=== PATIENT | male | born 1965 | race Hispanic/Latino ===

== ENCOUNTER 2019-01-11 02:26 | Emergency (ER) | payer SELFPAY | END 2019-01-11 02:55 | disposition home or self-care (01) | LOC: ERS 02:26 | DX: L03.115 Cellulitis of right lower limb (principal); K04.7 Periapical abscess without sinus; I25.10 Atherosclerotic heart disease of native coronary artery without angina pectoris; F32.9 Major depressive disorder, single episode, unspecified; Z79.899 Other long term (current) drug therapy | CPT/HCPCS: 99283 ==

== ENCOUNTER 2019-03-25 23:27 | Emergency (ER) | payer SELFPAY ==
[2019-03-26] MEDS ORDERED: Clindamycin 150 MG CAP ONE ×3 (07:52→21:55)
== END 2019-03-27 22:19 ==
LOC: ERS 23:27
DX: F32.9 Major depressive disorder, single episode, unspecified (principal); L03.115 Cellulitis of right lower limb; I25.10 Atherosclerotic heart disease of native coronary artery without angina pectoris
CPT/HCPCS: 99284

== ENCOUNTER 2020-07-23 06:52 | Emergency (ER) | payer MEDICARE ==
--- NOTE | 2020-07-23 07:41 | RAD ---
Right foot 3 views HISTORY: Pain. Swelling. FINDINGS: Lisfranc joint alignment is anatomic. Widespread mild joint space narrowing and osteophytos is. Toes are in persistent extension, somewhat limiting evaluation. No acute fracture, dislocation, or ag gressive osseous erosions. 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 Soft tissue swelling evident about the forefoot. IMPRESSION : Scattered mild osteoarthritic changes. No acute osseous abnormalities demonstrated. Soft tissue swelling about the forefoot without radiographic evidence of complication.
[2020-07-23 08:06] LABS: ALT (SGPT) 22 U/L (8-55); AST (SGOT) 39 U/L (5-34); Albumin 2.4 g/dL (3.5-5.0); Alkaline Phosphatase 122 U/L (40-110); Anion Gap 10 mmol/L (10-20); BUN (Urea Nitrogen) 10 mg/dL (8.4-25.7); Bilirubin, Total 1.1 mg/dL (0.2-1.2); Calc. Creatinine Clearance 0 mL/min (70-130); Calcium 7.5 mg/dL (7.8-10.44); Carbon Dioxide 19 mmol/L (22-29); Chloride 107 mmol/L (98-107); Estimated GFR-MDRD Greater than 90; Globulin 3.8 g/dL (2.4-3.5); Glucose 105 mg/dL (70-105); Potassium 3.8 mmol/L (3.5-5.1); Protein, Total 6.2 g/dL (6.0-8.3); Sodium 132 mmol/L (136-145)
--- NOTE | 2020-07-23 08:12 | ULT ---
EXAM: Right lower extremity venous Doppler HISTORY: Right lower extremity pain and swelling as well as redness. Open wound right lower extremity. FINDINGS: Grayscale, color-flow, Doppler evaluation, spectral analysis of the right lower extremity venous stru ctures is performed with 2-D imaging. The right common femoral, superficial femoral, popliteal, posterior tibial, proximal greater saphenous and profunda femoral veins are imaged. There is normal luminal compressibility, flow, and augmentation in the visualized deep venous structu res of the right lower extremity. There is increased pulsatility of the venous waveforms which is nonspecific. This can be seen with cardiac decompensation. Enlarged lymph nodes are seen in the right inguinal region largest measuring 3.9 cm x 1.6 cm which ar e likely reactive in origin. IMPRESSION: 1. No evidence of a deep vein thrombosis in the visualized deep venous structures right lower extremi ty. 2. Right inguinal lymphadenopathy which is likely reactive in origin.
[2020-07-23 08:17] LABS: #Eosinphils 1.1 thou/uL (0.0-0.7); #Lymphocytes 1.5 thou/uL (1.20-3.40); #Monocytes 0.9 thou/uL (0.11-0.59); #Neutrophils 4.1 thou/uL (1.40-6.50); %Basophils 0.4 % (0.0-1.0); %Eosinophils 14.1 % (0.0-10.0); %Lymphocytes 20.1 % (21.0-51.0); %Monocytes 11.1 % (0.0-10.0); %Neutrophils 54.3 % (42.0-75.0); Hemoglobin 11.8 g/dL (14.0-18.0); Mean Corpuscular HGB CONC 33.6 g/dL (32.0-36.0); Mean Corpuscular Hemoglobin 33.2 pg (27.0-31.0); Mean Corpuscular Volume 98.8 fL (78.0-98.0); Platelet Count 168 thou/uL (130-400); RBC Distribution Width 12.3 % (11.5-14.5); Red Blood Cell (RBC) Count 3.54 mill/uL (4.70-6.10); White Blood Cell (WBC) Count 7.6 thou/uL (4.8-10.8)
== END 2020-07-23 09:22 | disposition home or self-care (01) ==
LOC: ERS 06:52
DX: R60.0 Localized edema (principal); L97.419 Non-pressure chronic ulcer of right heel and midfoot with unspecified severity; F32.9 Major depressive disorder, single episode, unspecified; I25.10 Atherosclerotic heart disease of native coronary artery without angina pectoris; Z79.899 Other long term (current) drug therapy
CPT/HCPCS: 36415; 80053; 82140; 85025

== ENCOUNTER 2023-08-24 00:02 | Inpatient (IN) | payer MEDICARE ==
[2023-08-24] MEDS ORDERED: Morphine 2 MG/ML VIAL ONE ×2 (00:57→02:12)
[2023-08-24 02:51] LABS: #Monocytes 0.5 thou/uL (0.11-0.59); #Neutrophils 7.1 thou/uL (1.40-6.50); %Basophils 0.5 % (0.0-1.0); %Eosinophils 0.2 % (0.0-10.0); %Lymphocytes 10.7 % (21.0-51.0); %Monocytes 5.9 % (0.0-10.0); %Neutrophils 81.8 % (42.0-75.0); Hematocrit 30.3 % (42.0-52.0); Hemoglobin 10.3 g/dL (14.0-18.0); Mean Corpuscular Hemoglobin 33.2 pg (27.0-31.0); Mean Corpuscular Volume 97.7 fl (78.0-98.0); Mean Platelet Volume 8.9 fL (7.4-10.4); Platelet Count 125 10x3/uL (130-400); RBC Distribution Width 13.8 % (11.5-14.5); White Blood Cell (WBC) Count 8.6 10x3/uL (4.8-10.8)
[2023-08-24] MEDS ORDERED: Ondansetron PF 4 MG/2 ML Vial IVP PRN (03:06)
[2023-08-24] MEDS ORDERED: Acetaminophen 325 MG TAB PO PRN (03:06)
[2023-08-24 03:13] LABS: ALT (SGPT) 22 U/L (8-55); AST (SGOT) 54 U/L (5-34); Albumin 1.6 g/dL (3.5-5.0); Alkaline Phosphatase 138 U/L (40-110); Anion Gap 12 mmol/L (10-20); BUN (Urea Nitrogen) 12 mg/dL (8.4-25.7); Bilirubin, Total 1.4 mg/dL (0.2-1.2); Calc. Creatinine Clearance 0 mL/min (70-130); Carbon Dioxide 17 mmol/L (22-29); Chloride 113 mmol/L (98-107); Estimated GFR 111; Globulin 5.3 g/dL (2.4-3.5); Glucose 97 mg/dL (70-105); Potassium 3.5 mmol/L (3.5-5.1); Protein, Total 6.9 g/dL (6.0-8.3); Sodium 138 mmol/L (136-145)
[2023-08-24 03:19] LABS: #Monocytes 0.5 thou/uL (0.11-0.59); #Neutrophils 6.9 thou/uL (1.40-6.50); %Basophils 0.5 % (0.0-1.0); %Eosinophils 0.4 % (0.0-10.0); %Lymphocytes 11.1 % (21.0-51.0); %Monocytes 6.1 % (0.0-10.0); %Neutrophils 81.2 % (42.0-75.0); Hematocrit 30.2 % (42.0-52.0); Hemoglobin 10.2 g/dL (14.0-18.0); Mean Corpuscular HGB CONC 33.8 g/dL (32.0-36.0); Mean Corpuscular Hemoglobin 33.3 pg (27.0-31.0); Mean Corpuscular Volume 98.7 fl (78.0-98.0); Mean Platelet Volume 8.8 fL (7.4-10.4); Platelet Count 124 10x3/uL (130-400); RBC Distribution Width 13.8 % (11.5-14.5); Red Blood Cell (RBC) Count 3.06 mill/uL (4.70-6.10); White Blood Cell (WBC) Count 8.5 10x3/uL (4.8-10.8)
[2023-08-24] MEDS ORDERED: Piperacillin/Tazobactam 3.375 GM in Sodium Chloride 0.9% 100 ML IVPB SCH ×4 (04:00→10:00)
[2023-08-24] MEDS ORDERED: Sodium Bicarb 50 MEQ/50 ML Abboject 8.4% SYRINGE IVP SCH (04:30)
[2023-08-24 05:28] LABS: Bacteria/HPF None Seen HPF (None Seen); Bilirubin Negative (Negative); Blood, Urine Negative (Negative); CAUTI Indications for Culture Fever or rigors; Clarity Clear (Clear); Glucose, Urine (Dipstick) Normal (Negative); Ketone, Urine Negative (Negative); Leukocyte Negative Leu/uL (Negative); Nitrite Negative (Negative); Protein, Urine (Dipstick) 10 mg/dL (Neg-Trace); Specific Gravity, Urine 1.027 (1.002-1.036); Squamous Epithelial 0-3 HPF (0-3); Urobilinogen Normal mg/dL (Less than 2); WBC/HPF 0-3 HPF (0-3); pH, Urine 6.5 (5.0-9.0)
[2023-08-24 05:32] LABS: Urine Culture Reflex No No
[2023-08-24 05:35] LABS: Amphetamine Detected (NotDetected); Barbiturates Screen Not Detected (NotDetected); Benzodiazepine Screen Not Detected (NotDetected); Cocaine Metabolite Screen Not Detected (NotDetected); Methadone Not Detected (NotDetected); Methamphetamine Detected (NotDetected); Opiate Screen Detected (NotDetected); Oxycodone Screen Not Detected (NotDetected); Phencyclidine (PCP) Not Detected (NotDetected); THC/Cannabinoid Screen Not Detected (NotDetected); Tricyclic Screen Not Detected (NotDetected)
[2023-08-24 05:50] VITALS: BMI 26.4
[2023-08-24] MEDS ORDERED: Vancomycin (BATCH) 1.75 GM in Premix 1 BAG IVPB SCH (06:00)
[2023-08-24 13:03] LABS: INR-International Normal Ratio 1.6; Prothrombin Time 19.6 sec (12.0-14.7)
[2023-08-24] MEDS ORDERED: Vancomycin (BATCH) 1.25 GM in Premix 1 BAG IVPB SCH (14:00)
[2023-08-24] MEDS ORDERED: Heparin 5,000 UNITS/ML VIAL SC SCH (21:00)
[2023-08-24] MEDS: Amoxicillin/Potassium Clav 875 MG TAB PO SCH (21:42)
[2023-08-25 04:23] LABS: #Basophils 0.1 thou/uL (0.0-0.2); #Eosinphils 1.1 thou/uL (0.0-0.7); #Monocytes 0.3 thou/uL (0.11-0.59); #Neutrophils 2.1 thou/uL (1.40-6.50); %Basophils 1.1 % (0.0-1.0); %Lymphocytes 23.8 % (21.0-51.0); %Monocytes 6.5 % (0.0-10.0); %Neutrophils 44.4 % (42.0-75.0); Hematocrit 30.3 % (42.0-52.0); Hemoglobin 10.3 g/dL (14.0-18.0); Mean Corpuscular Hemoglobin 33.1 pg (27.0-31.0); Mean Corpuscular Volume 97.4 fl (78.0-98.0); Mean Platelet Volume 8.9 fL (7.4-10.4); Platelet Count 141 10x3/uL (130-400); Red Blood Cell (RBC) Count 3.11 mill/uL (4.70-6.10); White Blood Cell (WBC) Count 4.6 10x3/uL (4.8-10.8)
[2023-08-25 04:40] LABS: Anion Gap 7 mmol/L (10-20); BUN (Urea Nitrogen) 12 mg/dL (8.4-25.7); Calc. Creatinine Clearance 170 mL/min (70-130); Calcium 7.3 mg/dL (7.8-10.44); Carbon Dioxide 22 mmol/L (22-29); Chloride 109 mmol/L (98-107); Estimated GFR 111; Glucose 98 mg/dL (70-105); Potassium 3.4 mmol/L (3.5-5.1); Sodium 135 mmol/L (136-145)
[2023-08-25 04:45] LABS: ALT (SGPT) 20 U/L (8-55); AST (SGOT) 51 U/L (5-34); Albumin 1.5 g/dL (3.5-5.0); Alkaline Phosphatase 117 U/L (40-110); Bilirubin, Direct 0.6 mg/dL (0.1-0.3); Bilirubin, Total 0.9 mg/dL (0.2-1.2); Protein, Total 6.6 g/dL (6.0-8.3)
[2023-08-25] MEDS: Amoxicillin/Potassium Clav 875 MG TAB PO SCH (09:09)
[2023-08-25 12:06] VITALS: TEMP 97.8
[2023-08-25 12:49] VITALS: BP 126/73
== END 2023-08-25 16:34 | disposition home health service (06) | DRG 872 ==
LOC: ERS 00:02 → 2NO 02:31
PROVIDERS: ADMIT Internal Medicine; ATTEND Hospitalist
DX: A41.9 Sepsis, unspecified organism (principal); L03.116 Cellulitis of left lower limb; L03.115 Cellulitis of right lower limb; E87.20 Acidosis, unspecified; D64.9 Anemia, unspecified; I25.10 Atherosclerotic heart disease of native coronary artery without angina pectoris; F15.10 Other stimulant abuse, uncomplicated; I87.8 Other specified disorders of veins; M17.0 Bilateral primary osteoarthritis of knee; S81.801A Unspecified open wound, right lower leg, initial encounter; S81.802A Unspecified open wound, left lower leg, initial encounter; K74.60 Unspecified cirrhosis of liver; B19.20 Unspecified viral hepatitis C without hepatic coma; Z95.5 Presence of coronary angioplasty implant and graft; Z98.890 Other specified postprocedural states; X58.XXXA Exposure to other specified factors, initial encounter
CPT/HCPCS: 36415; 76705; 80048; 80053; 80076; 80306; 81001; 82140; 83605; 83880; 85025; 85610; 96374; 96376; 97139; J2272; J2543; J3370; J3490

== ENCOUNTER 2024-10-13 18:03 | Inpatient (IN) | payer MEDICARE ==
[2024-10-13] MEDS ORDERED: KETAMINE 100 MG/ML (5ML VIAL) ONE (18:08)
[2024-10-13] MEDS ORDERED: Rocuronium Bromide 10 MG/ML (10ML VIAL) ONE (18:13)
[2024-10-13 18:33] LABS: Actual Bicarbonate (HCO3a) 17.4 mEq/L (22-28); Analyzer IN Cardio ER; Base Excess (BEa) -6.3 mEq/L (-2.0 to +3.0); CO2 Tension 29.8 mmHg (35.0-45.0); Calcium, Ionized (arterial) 1.19 mmol/L (1.12-1.30); Carboxyhemoglobin (COHb) 0.4 gm% (0.0-3.0); Hematocrit-ABG 41 % (42.0-52.0); Hemoglobin (Hb) 13.8 g/dL (14.0-18.0); O2 Tension (PaO2), arterial 218.5 mmHg (80.0-100.0); Potassium - ABG Lab 3.62 mmol/L (3.70-5.30); pH, Arterial 7.385 (7.35-7.45)
[2024-10-13 18:44] LABS: Puncture Site Left Brachial artery
[2024-10-13] MEDS ORDERED: Acetaminophen 650 MG Suppository ONE (18:56)
[2024-10-13] MEDS ORDERED: Sodium Chloride 0.9% 100 ML ONE (18:57)
[2024-10-13] MEDS ORDERED: metroNIDAZOLE 500 MG (100 mL) BAG ONE (18:57)
[2024-10-13] MEDS ORDERED: cefTRIAXone (ROCEPHIN) 2 GM VIAL ONE (18:57)
[2024-10-13 19:07] LABS: Bilirubin Negative (Negative); Blood, Urine 3+ (Negative); CAUTI Indications for Culture Alt mental st,lethar; Clarity Turbid (Clear); Glucose, Urine (Dipstick) Normal (Negative); Ketone, Urine Trace mg/dL (Negative); Leukocyte Negative Leu/uL (Negative); Nitrite Negative (Negative); Protein, Urine (Dipstick) 30 mg/dL (Neg-Trace); RBC/HPF Greater than 50 HPF (0-3); Specific Gravity, Urine 1.022 (1.002-1.036)
[2024-10-13 19:09] LABS: Bacteria/HPF 1+ HPF (None Seen)
[2024-10-13 19:10] LABS: ALT (SGPT) 32 U/L (8-55); AST (SGOT) 60 U/L (5-34); Albumin 2.2 g/dL (3.5-5.0); Alkaline Phosphatase 153 U/L (40-110); Anion Gap 8 mmol/L (10-20); BUN (Urea Nitrogen) 13 mg/dL (8.4-25.7); Bilirubin, Total 2.7 mg/dL (0.2-1.2); Calc. Creatinine Clearance 0 mL/min (70-130); Calcium 8.1 mg/dL (7.8-10.44); Carbon Dioxide 17 mmol/L (22-29); Chloride 113 mmol/L (98-107); Estimated GFR 113; Globulin 5.2 g/dL (2.4-3.5); Glucose 80 mg/dL (70-105); Potassium 3.5 mmol/L (3.5-5.1); Protein, Total 7.4 g/dL (6.0-8.3); Sodium 134 mmol/L (136-145)
[2024-10-13 19:10] LABS: Urine Culture Reflex Yes Yes
[2024-10-13 19:15] LABS: #Basophils 0.04 10x3/uL (0.0-0.2); #Eosinophils Less than 0.03 10x3/uL (0.0-0.7); %Basophils 0.3 % (0.0-1.0); %Eosinophils 0.1 % (0.0-10.0); %Lymphocytes 3.3 % (21.0-51.0); %Monocytes 4.5 % (0.0-10.0); %Neutrophils 90.1 % (42.0-75.0); Hematocrit 37.1 % (42.0-52.0); Hemoglobin 12.8 g/dL (14.0-18.0); Mean Corpuscular HGB CONC 34.5 g/dL (32.0-36.0); Mean Corpuscular Hemoglobin 33.2 pg (27.0-31.0); Mean Corpuscular Volume 96.1 fL (78.0-98.0); Mean Platelet Volume 9.1 fL (7.4-10.4); Platelet Count 102 10x3/uL (130-400); RBC Distribution Width 14.5 % (11.5-14.5); Red Blood Cell (RBC) Count 3.86 mill/uL (4.70-6.10); Troponin I 0.047 ng/mL (< 0.028)
[2024-10-13 19:17] LABS: INR-International Normal Ratio 1.5; Prothrombin Time 17.7 sec (12.0-14.7)
[2024-10-13] MEDS ORDERED: Midazolam HCl 2 mg/2 ml Vial ONE (19:49)
[2024-10-13 20:42] LABS: CSF Source CSF; Clarity Clear (Clear); Tube # 1; Tube # 4
[2024-10-13 20:44] LABS: Color Of CSF Supernatant COLORLESS (Colorless); Tube # 2; Unspun CSF Color COLORLESS (Colorless)
[2024-10-13 20:46] LABS: CSF, Glucose 50 mg/dl (40-70); CSF, Protein 30.1 mg/dL (15-40)
[2024-10-13] MEDS ORDERED: Aspirin 300 MG Suppository ONE (20:48)
[2024-10-13 21:13] LABS: Lymphocytes 50 %; Segmented Neutrophils 50 %
[2024-10-13] MEDS ORDERED: Ondansetron PF 4 MG/2 ML Vial IVP PRN (21:25)
[2024-10-13] MEDS: Vancomycin (BATCH) 2.5 GM in Premix 1 BAG IVPB SCH (22:10)
[2024-10-13] MEDS ORDERED: Ventilator Sedation Protocol 1 EACH FS SCH (22:15)
[2024-10-13 22:28] LABS: Amphetamine Detected (NotDetected); Barbiturates Screen Not Detected (NotDetected); Benzodiazepine Screen Not Detected (NotDetected); Cocaine Metabolite Screen Not Detected (NotDetected); Methadone Not Detected (NotDetected); Methamphetamine Detected (NotDetected); Opiate Screen Not Detected (NotDetected); Oxycodone Screen Not Detected (NotDetected); Phencyclidine (PCP) Not Detected (NotDetected); THC/Cannabinoid Screen Not Detected (NotDetected); Tricyclic Screen Not Detected (NotDetected)
[2024-10-13] MEDS ORDERED: Propofol 1,000 MG/100 ML VIAL IV PRN (22:30)
[2024-10-13] MEDS ORDERED: Fentanyl BOLUS 250 ML IVPB PRN (22:30)
[2024-10-13] MEDS ORDERED: DISCONTINUE PREVIOUS NARCOTIC PAIN MEDICATIONS AND BENZODIAZEPINES FS SCH (22:30)
[2024-10-13] MEDS ORDERED: Propofol BOLUS 1,000 MG/100 ML VIAL IV PRN (22:30)
[2024-10-13] MEDS ORDERED: Morphine 2 MG/ML VIAL SLOW IVP PRN (22:30)
[2024-10-13] MEDS ORDERED: Lorazepam 2 MG/ML VIAL SLOW IVP PRN (22:30)
[2024-10-13 23:17] VITALS: BMI 23.4
[2024-10-13] MEDS: Lactulose 20 GM (30 mL) UDCUP PER TUBE SCH (23:39)
[2024-10-13] MEDS: Thiamine HCl 200 MG/2 ML VIAL SLOW IVP SCH (23:40)
[2024-10-14] MEDS: SODIUM CHLORIDE 0.9% IVPB SCH (00:03)
[2024-10-14] MEDS: ACYCLOVIR SODIUM IVPB SCH (00:03)
[2024-10-14] MEDS: Lactated Ringer's 1,000 ML IV SCH (00:17)
[2024-10-14] MEDS: Albumin 25% 25 GM (100 mL) BOT IVPB SCH (04:16)
[2024-10-14] MEDS: Vancomycin (BATCH) 1.25 GM in Premix 1 BAG IVPB SCH (04:16)
[2024-10-14 05:38] LABS: Vancomycin, Random 35.9 ug/mL (See Comment)
[2024-10-14 05:40] LABS: #Basophils 0.04 10x3/uL (0.0-0.2); %Basophils 0.3 % (0.0-1.0); %Eosinophils 0.2 % (0.0-10.0); %Lymphocytes 4.7 % (21.0-51.0); %Monocytes 4.5 % (0.0-10.0); %Neutrophils 89.7 % (42.0-75.0); Hematocrit 36.3 % (42.0-52.0); Hemoglobin 12.2 g/dL (14.0-18.0); Mean Corpuscular HGB CONC 33.6 g/dL (32.0-36.0); Mean Corpuscular Hemoglobin 33.3 pg (27.0-31.0); Mean Corpuscular Volume 99.2 fL (78.0-98.0); Mean Platelet Volume 9.3 fL (7.4-10.4); Platelet Count 97 10x3/uL (130-400); RBC Distribution Width 14.7 % (11.5-14.5); Red Blood Cell (RBC) Count 3.66 mill/uL (4.70-6.10)
[2024-10-14 05:41] LABS: ALT (SGPT) 29 U/L (8-55); AST (SGOT) 55 U/L (5-34); Albumin 2.2 g/dL (3.5-5.0); Alkaline Phosphatase 124 U/L (40-110); Anion Gap 10 mmol/L (10-20); BUN (Urea Nitrogen) 17 mg/dL (8.4-25.7); Bilirubin, Total 2.6 mg/dL (0.2-1.2); CRP,High Sensitivity (Inhouse) 6.7 mg/dL (< or = 0.5); Calc. Creatinine Clearance 162 mL/min (70-130); Calcium 7.9 mg/dL (7.8-10.44); Carbon Dioxide 16 mmol/L (22-29); Chloride 116 mmol/L (98-107); Estimated GFR 111; Globulin 4.6 g/dL (2.4-3.5); Glucose 90 mg/dL (70-105); Potassium 4.1 mmol/L (3.5-5.1); Protein, Total 6.8 g/dL (6.0-8.3); Sodium 138 mmol/L (136-145)
[2024-10-14 05:48] LABS: Troponin I 0.029 ng/mL (< 0.028)
[2024-10-14] MEDS: Cefepime 2 GM in Sodium Chloride 0.9% 100 ML IVPB SCH ×2 (06:12→13:06)
[2024-10-14] MEDS: Fentanyl CADD 100 ML IV SCH (06:21)
[2024-10-14] MEDS: Lactulose 20 GM (30 mL) UDCUP PER TUBE SCH (08:19)
[2024-10-14] MEDS: Pantoprazole 40 MG VIAL IVP SCH (08:19)
[2024-10-14] MEDS: Heparin 5,000 UNITS/ML VIAL SC SCH (08:19)
[2024-10-14] MEDS: Thiamine 100 MG TAB PER TUBE SCH (08:19)
[2024-10-14] MEDS: Folic Acid 1 MG TAB PER TUBE SCH (08:19)
[2024-10-14] MEDS: Vancomycin HCl 750 MG in Sodium Chloride 0.9% 250 ML 250 ML IVPB SCH (13:04)
[2024-10-14 13:45] LABS: ALT (SGPT) 25 U/L (8-55); AST (SGOT) 51 U/L (5-34); Alkaline Phosphatase 106 U/L (40-110); Bilirubin, Direct 1.6 mg/dL (0.1-0.3); Bilirubin, Total 2.7 mg/dL (0.2-1.2); Protein, Total 6.2 g/dL (6.0-8.3)
[2024-10-14] MEDS: FLU (Fluarix Triv) TS24-25(6MOS UP)/PF 45 MCG/0.5 ML Syringe IM ONE (13:50)
[2024-10-15] MEDS: Fentanyl CADD 100 ML IV SCH (01:15)
[2024-10-15 04:18] LABS: #Basophils 0.03 10x3/uL (0.0-0.2); %Basophils 0.6 % (0.0-1.0); %Eosinophils 9.9 % (0.0-10.0); %Monocytes 10.9 % (0.0-10.0); %Neutrophils 57.4 % (42.0-75.0); Hematocrit 33.1 % (42.0-52.0); Mean Corpuscular HGB CONC 33.2 g/dL (32.0-36.0); Mean Corpuscular Hemoglobin 33.2 pg (27.0-31.0); Mean Platelet Volume 9.5 fL (7.4-10.4); Platelet Count 88 10x3/uL (130-400); RBC Distribution Width 14.6 % (11.5-14.5); Red Blood Cell (RBC) Count 3.31 mill/uL (4.70-6.10)
[2024-10-15 04:46] LABS: Vancomycin, Random 17.5 ug/mL (See Comment)
[2024-10-15 04:54] LABS: ALT (SGPT) 26 U/L (8-55); AST (SGOT) 58 U/L (5-34); Albumin 1.8 g/dL (3.5-5.0); Alkaline Phosphatase 100 U/L (40-110); Anion Gap 8 mmol/L (10-20); BUN (Urea Nitrogen) 20 mg/dL (8.4-25.7); Calc. Creatinine Clearance 147 mL/min (70-130); Calcium 7.8 mg/dL (7.8-10.44); Carbon Dioxide 19 mmol/L (22-29); Chloride 116 mmol/L (98-107); Estimated GFR 108; Globulin 4.4 g/dL (2.4-3.5); Glucose 73 mg/dL (70-105); Potassium 3.9 mmol/L (3.5-5.1); Protein, Total 6.2 g/dL (6.0-8.3); Sodium 139 mmol/L (136-145)
[2024-10-15] MEDS: Vancomycin (BATCH) 1.25 GM in Premix 1 BAG IVPB SCH (17:02)
[2024-10-15] MEDS: Rifaximin 550 MG TAB PO SCH (22:15)
[2024-10-16 05:13] LABS: ALT (SGPT) 31 U/L (8-55); AST (SGOT) 65 U/L (5-34); Alkaline Phosphatase 108 U/L (40-110); Anion Gap 10 mmol/L (10-20); BUN (Urea Nitrogen) 14 mg/dL (8.4-25.7); Bilirubin, Total 2.2 mg/dL (0.2-1.2); Calc. Creatinine Clearance 169 mL/min (70-130); Carbon Dioxide 18 mmol/L (22-29); Chloride 114 mmol/L (98-107); Estimated GFR 112; Globulin 4.7 g/dL (2.4-3.5); Glucose 85 mg/dL (70-105); Potassium 3.4 mmol/L (3.5-5.1); Protein, Total 6.7 g/dL (6.0-8.3); Sodium 139 mmol/L (136-145)
[2024-10-16 05:16] LABS: #Basophils Less than 0.03 10x3/uL (0.0-0.2); %Basophils 0.5 % (0.0-1.0); %Lymphocytes 25.6 % (21.0-51.0); %Monocytes 9.1 % (0.0-10.0); %Neutrophils 51.6 % (42.0-75.0); Hematocrit 35.5 % (42.0-52.0); Mean Corpuscular HGB CONC 33.8 g/dL (32.0-36.0); Mean Corpuscular Hemoglobin 33.1 pg (27.0-31.0); Mean Corpuscular Volume 97.8 fL (78.0-98.0); Mean Platelet Volume 9.1 fL (7.4-10.4); Platelet Count 116 10x3/uL (130-400); RBC Distribution Width 14.1 % (11.5-14.5); Red Blood Cell (RBC) Count 3.63 mill/uL (4.70-6.10)
[2024-10-16] MEDS ORDERED: Electrolyte Replacement Protocol FS PRN ×2 (06:45→09:30)
[2024-10-16] MEDS: Potassium Chloride 20 MEQ in Premix 1 BAG IVPB SCH (07:15)
[2024-10-16 08:30] LABS: Magnesium 1.7 mg/dL (1.6-2.6); Phosphorus 2.7 mg/dL (2.3-4.7)
[2024-10-16] MEDS ORDERED: Potassium Chloride 20 MEQ TAB PO SCH (09:30)
[2024-10-16] MEDS ORDERED: Magnesium 2 GM/50 ML(in water) 2 GM in Premix 1 BAG IVPB SCH (09:30)
[2024-10-16] MEDS: Magnesium 2 GM/50 ML(in water) 2 GM in Premix 1 BAG IVPB SCH (09:35)
[2024-10-16] MEDS: Electrolyte Replacement Protocol 1 EACH FS ONE (11:20)
[2024-10-16 14:52] LABS: Potassium 3.7 mmol/L (3.5-5.1)
[2024-10-17 06:16] LABS: #Basophils 0.03 10x3/uL (0.0-0.2); %Basophils 0.7 % (0.0-1.0); %Eosinophils 13.4 % (0.0-10.0); %Lymphocytes 28.8 % (21.0-51.0); %Monocytes 9.9 % (0.0-10.0); Hematocrit 33.6 % (42.0-52.0); Hemoglobin 11.8 g/dL (14.0-18.0); Mean Corpuscular HGB CONC 35.1 g/dL (32.0-36.0); Mean Corpuscular Hemoglobin 33.2 pg (27.0-31.0); Mean Corpuscular Volume 94.6 fL (78.0-98.0); Mean Platelet Volume 9.4 fL (7.4-10.4); Platelet Count 117 10x3/uL (130-400); RBC Distribution Width 13.9 % (11.5-14.5); Red Blood Cell (RBC) Count 3.55 mill/uL (4.70-6.10)
[2024-10-17] MEDS: Acyclovir Sodium 500 mg (10 mL) Vial IVPB SCH (06:38)
[2024-10-17 06:41] LABS: Anion Gap 8 mmol/L (10-20); BUN (Urea Nitrogen) 10 mg/dL (8.4-25.7); Calc. Creatinine Clearance 206 mL/min (70-130); Calcium 7.6 mg/dL (7.8-10.44); Carbon Dioxide 20 mmol/L (22-29); Chloride 111 mmol/L (98-107); Estimated GFR 119; Glucose 85 mg/dL (70-105); Potassium 3.3 mmol/L (3.5-5.1); Sodium 136 mmol/L (136-145)
[2024-10-17] MEDS: Potassium Chloride 20 MEQ TAB PO SCH (08:54)
[2024-10-17] MEDS ORDERED: Amlodipine 10 MG TAB PO SCH (10:00)
[2024-10-17] MEDS: Amlodipine 5 MG TAB PO SCH (10:55)
[2024-10-18] MEDS: Acetaminophen 500 MG TAB PO PRN (01:01)
[2024-10-18 06:11] LABS: Vancomycin, Random 9.2 ug/mL (See Comment)
[2024-10-18 06:13] LABS: HSV 1 - DNA, CSF Negative (Negative); HSV 2 - DNA, CSF Negative (Negative)
[2024-10-18] MEDS: Amlodipine 5 MG TAB PO SCH (09:49)
[2024-10-18 10:25] VITALS: BMI 24.3
[2024-10-18] MEDS: Benzocaine/Menthol 1 LOZ LOZ PO SCH (15:06)
[2024-10-18] MEDS ORDERED: Vancomycin 1.5 GRAM/300 ML BAG 1.5 GM in Premix 1 BAG IVPB SCH (18:00)
[2024-10-18] MEDS: Doxycycline 100 MG CAP PO SCH (21:33)
[2024-10-19] MEDS: Benzocaine/Menthol 1 LOZ LOZ PO PRN (10:20)
[2024-10-19 13:24] LABS: Lactic Acid 2.13 mmol/L (0.5-2.2)
[2024-10-19 15:54] LABS: Bilirubin Negative (Negative); Blood, Urine 3+ (Negative); CAUTI Indications for Culture Fever or rigors; Clarity Turbid (Clear); Glucose, Urine (Dipstick) Normal (Negative); Ketone, Urine Negative (Negative); Leukocyte Negative Leu/uL (Negative); Nitrite Negative (Negative); Protein, Urine (Dipstick) 20 mg/dL (Neg-Trace); RBC/HPF Greater than 50 HPF (0-3); Specific Gravity, Urine 1.015 (1.002-1.036); Squamous Epithelial 0-3 HPF (0-3); Urobilinogen Normal mg/dL (Less than 2); WBC/HPF None Seen HPF (0-3); pH, Urine 6.5 (5.0-9.0)
[2024-10-19 16:16] LABS: Bacteria/HPF 1+ HPF (None Seen)
[2024-10-19 16:17] LABS: Urine Culture Reflex No No
[2024-10-19] MEDS: cefTRIAXone\\ROCEPHIN 1 GM in Sodium Chloride 0.9% 100 ML IVPB SCH (18:24)
[2024-10-20] MEDS: cefTRIAXone\\ROCEPHIN 2 GM in Sodium Chloride 0.9% 100 ML IVPB SCH (08:31)
[2024-10-20] MEDS: guaiFENesin/Codeine 200 mg/20 mg 10 ml Cup PO PRN (08:33)
[2024-10-20] MEDS ORDERED: Potassium Chloride 20 MEQ TAB PO ONE (17:37)
[2024-10-21 05:31] LABS: Hematocrit 36.3 % (42.0-52.0); Hemoglobin 12.8 g/dL (14.0-18.0); Mean Corpuscular HGB CONC 35.3 g/dL (32.0-36.0); Mean Corpuscular Hemoglobin 33.4 pg (27.0-31.0); Mean Corpuscular Volume 94.8 fL (78.0-98.0); Platelet Count 128 10x3/uL (130-400); RBC Distribution Width 14.1 % (11.5-14.5); Red Blood Cell (RBC) Count 3.83 mill/uL (4.70-6.10)
[2024-10-21 05:41] LABS: Anion Gap 7 mmol/L (10-20); BUN (Urea Nitrogen) 6 mg/dL (8.4-25.7); Calc. Creatinine Clearance 201 mL/min (70-130); Calcium 7.4 mg/dL (7.8-10.44); Carbon Dioxide 21 mmol/L (22-29); Chloride 107 mmol/L (98-107); Estimated GFR 118; Glucose 120 mg/dL (70-105); Potassium 3.7 mmol/L (3.5-5.1); Sodium 131 mmol/L (136-145)
[2024-10-21 06:03] LABS: Anisocytosis SLIGHT = 6-15 cells HPF (0-5); Band 3 % (5-11); Eosinophils 6 % (0-10); Large Platelets 5.8 % (0-5); Lymphocytes 26 % (21-51); Monocytes 7 % (0-10); Neutrophil 54 % (42-75); Platelet Adequacy Comment Platelets Decreased; Reactive Lymphocytes 3 % (0-10)
[2024-10-21] MEDS ORDERED: Melatonin 3 MG TAB PO PRN (21:18)
[2024-10-21] MEDS: Ketorolac Tromethamine 10 MG TAB PO SCH (21:46)
[2024-10-21] MEDS: diphenhydrAMINE 25 MG CAP PO SCH (21:46)
[2024-10-22 05:32] LABS: Hematocrit 36.9 % (42.0-52.0); Hemoglobin 12.9 g/dL (14.0-18.0); Mean Corpuscular Hemoglobin 32.7 pg (27.0-31.0); Mean Corpuscular Volume 93.4 fL (78.0-98.0); Mean Platelet Volume 8.9 fL (7.4-10.4); Platelet Count 125 10x3/uL (130-400); RBC Distribution Width 13.9 % (11.5-14.5); Red Blood Cell (RBC) Count 3.95 mill/uL (4.70-6.10)
[2024-10-22 05:45] LABS: Anion Gap 9 mmol/L (10-20); BUN (Urea Nitrogen) 7 mg/dL (8.4-25.7); Calc. Creatinine Clearance 197 mL/min (70-130); Calcium 7.5 mg/dL (7.8-10.44); Carbon Dioxide 21 mmol/L (22-29); Chloride 108 mmol/L (98-107); Estimated GFR 117; Glucose 115 mg/dL (70-105); Potassium 3.8 mmol/L (3.5-5.1); Sodium 134 mmol/L (136-145)
[2024-10-22 06:10] LABS: Anisocytosis SLIGHT = 6-15 cells HPF (0-5); Band 5 % (5-11); Eosinophils 6 % (0-10); Lymphocytes 31 % (21-51); Monocytes 5 % (0-10); Neutrophil 45 % (42-75); Platelet Adequacy Comment Platelets Normal; Reactive Lymphocytes 8 % (0-10); Smudge Cells 39.6 %
[2024-10-22 12:41] VITALS: BP 129/78; TEMP 98.1
[2024-10-26 19:12] LABS: Aspergillus AB-CSF <1:1 (.); Blastomyces AB-CSF <1:1 (.); Histoplasma Mycelial AB-CSF <1:1 (.); Histoplasma Yeast AB-CSF <1:1 (.)
== END 2024-10-22 19:10 | disposition swing bed (61) | DRG 871 ==
LOC: ERS 18:03 → CCU 18:24 → T4-B 10-16 10:58
PROVIDERS: ADMIT Internal Medicine; ATTEND Internal Medicine
PROC: 009U3ZX Drainage of Spinal Canal, Percutaneous Approach, Diagnostic (ICD-10-PCS; principal; 2024-10-13)
PROC: 5A1945Z Respiratory Ventilation, 24-96 Consecutive Hours (ICD-10-PCS; 2024-10-13)
PROC: 0BH17EZ Insertion of Endotracheal Airway into Trachea, Via Natural or Artificial Opening (ICD-10-PCS; 2024-10-13)
PROC: 4A033R1 Measurement of Arterial Saturation, Peripheral, Percutaneous Approach (ICD-10-PCS; 2024-10-13)
DX: A41.9 Sepsis, unspecified organism (principal); G93.41 Metabolic encephalopathy; J18.9 Pneumonia, unspecified organism; J96.01 Acute respiratory failure with hypoxia; L03.116 Cellulitis of left lower limb; E87.1 Hypo-osmolality and hyponatremia; I50.32 Chronic diastolic (congestive) heart failure; E87.20 Acidosis, unspecified; I5A Non-ischemic myocardial injury (non-traumatic); E87.6 Hypokalemia; R53.81 Other malaise; K76.82 Hepatic encephalopathy; I25.10 Atherosclerotic heart disease of native coronary artery without angina pectoris; K74.60 Unspecified cirrhosis of liver; F15.10 Other stimulant abuse, uncomplicated; F10.10 Alcohol abuse, uncomplicated; D63.8 Anemia in other chronic diseases classified elsewhere; R82.81 Pyuria; I89.0 Lymphedema, not elsewhere classified; F32.A Depression, unspecified; Z79.899 Other long term (current) drug therapy; Z95.5 Presence of coronary angioplasty implant and graft
CPT/HCPCS: 31500; 36415; 36600; 43752; 51702; 62270; 70450; 71045; 80048; 80053; 80202; 80306; 81001; 82140; 82550; 82565; 82805; 82945; 83605; 83735; 83880; 84100; 84157; 84484; 85025; 85060; 85610; 85730; 86141; 86592; 86612; 86635; 86698; 87040; 87070; 87086; 87205; 87428; 87529; 87798; 89051; 93005; 93306; 94002; 94003; 96365; 96366; 96368; 97139; J0133; J0692; J0696; J1644; J2250; J2470; J3010; J3370; J3411; J3475; J3480; J7050; J7120; P9047

== ENCOUNTER 2025-05-08 11:10 | Inpatient (IN) | payer MEDICARE ==
[2025-05-08 12:09] LABS: #Basophils 0.06 10x3/uL (0.0-0.2); #Eosinophils 0.49 10x3/uL (0.0-0.7); #Monocytes 0.50 10x3/uL (0.11-0.59); #Neutrophils 4.58 10x3/uL (1.40-6.50); %Basophils 0.9 % (0.0-1.0); %Eosinophils 7.3 % (0.0-10.0); %Lymphocytes 15.3 % (21.0-51.0); %Monocytes 7.5 % (0.0-10.0); %Neutrophils 68.7 % (42.0-75.0); Hematocrit 30.1 % (42.0-52.0); Hemoglobin 10.3 g/dL (14.0-18.0); Mean Corpuscular Hemoglobin 33.4 pg (27.0-31.0); Mean Corpuscular Volume 97.7 fL (78.0-98.0); Platelet Count 141 10x3/uL (130-400); Red Blood Cell (RBC) Count 3.08 mill/uL (4.70-6.10); White Blood Cell (WBC) Count 6.67 10x3/uL (4.8-10.8)
[2025-05-08 12:27] LABS: Anion Gap 7 mmol/L (10-20); BUN (Urea Nitrogen) 8 mg/dL (8.4-25.7); Calc. Creatinine Clearance 0 mL/min (70-130); Calcium 7.0 mg/dL (7.8-10.44); Carbon Dioxide 20 mmol/L (22-29); Chloride 110 mmol/L (98-107); Glucose 88 mg/dL (70-105); Magnesium 1.3 mg/dL (1.6-2.6); Potassium 3.2 mmol/L (3.5-5.1); Sodium 134 mmol/L (136-145)
[2025-05-08] MEDS ORDERED: Cefepime 2 GM VIAL ONE (13:01)
[2025-05-08] MEDS ORDERED: Ondansetron PF 4 MG/2 ML Vial ONE (13:01)
[2025-05-08] MEDS ORDERED: Acetaminophen 325 MG TAB PO PRN (14:05)
[2025-05-08] MEDS ORDERED: Ondansetron PF 4 MG/2 ML Vial IVP PRN (14:05)
[2025-05-08 15:03] LABS: Bacteria/HPF None Seen HPF (None Seen); CAUTI Indications for Culture Fever or rigors; Glucose, Urine (Dipstick) Normal (Negative); Leukocyte Negative Leu/uL (Negative); Protein, Urine (Dipstick) Negative (Neg-Trace); RBC/HPF 0-3 HPF (0-3); Specific Gravity, Urine 1.022 (1.002-1.036); WBC/HPF 0-3 HPF (0-3)
[2025-05-08 15:04] LABS: Urine Culture Reflex No No
[2025-05-08] MEDS ORDERED: Magnesium 2 GM/50 ML BAG (IN WATER) ONE (15:35)
[2025-05-08] MEDS: VANCOMYCIN 1.75 GM/350 ML Premix BAG IVPB SCH (17:30)
[2025-05-08] MEDS: Lactulose 20 GM (30 mL) UDCUP PO SCH (18:13)
[2025-05-09] MEDS: cefTRIAXone\\ROCEPHIN 1 GM in Sodium Chloride 0.9% 100 ML IVPB SCH (01:46)
[2025-05-09] MEDS: Vancomycin 1.25 GM / NS 250 ML VIAL-2-BAG IVPB SCH (03:22)
[2025-05-09 04:43] LABS: #Basophils 0.05 10x3/uL (0.0-0.2); #Eosinophils 0.60 10x3/uL (0.0-0.7); #Monocytes 0.43 10x3/uL (0.11-0.59); #Neutrophils 3.10 10x3/uL (1.40-6.50); %Basophils 0.9 % (0.0-1.0); %Eosinophils 11.2 % (0.0-10.0); %Lymphocytes 21.6 % (21.0-51.0); %Monocytes 8.0 % (0.0-10.0); %Neutrophils 57.9 % (42.0-75.0); Hematocrit 31.1 % (42.0-52.0); Hemoglobin 10.6 g/dL (14.0-18.0); Mean Corpuscular Hemoglobin 33.4 pg (27.0-31.0); Mean Corpuscular Volume 98.1 fL (78.0-98.0); Platelet Count 142 10x3/uL (130-400); Red Blood Cell (RBC) Count 3.17 mill/uL (4.70-6.10); White Blood Cell (WBC) Count 5.36 10x3/uL (4.8-10.8)
[2025-05-09 04:56] LABS: Anion Gap 10 mmol/L (10-20); BUN (Urea Nitrogen) 8 mg/dL (8.4-25.7); Calc. Creatinine Clearance 209 mL/min (70-130); Calcium 7.2 mg/dL (7.8-10.44); Carbon Dioxide 20 mmol/L (22-29); Chloride 109 mmol/L (98-107); Glucose 88 mg/dL (70-105); Potassium 3.4 mmol/L (3.5-5.1); Sodium 136 mmol/L (136-145)
[2025-05-09 05:12] LABS: Vancomycin, Random 36.7 ug/mL (See Comment)
[2025-05-09] MEDS: Enoxaparin 40 MG (0.4 mL) SYRINGE SC SCH (08:23)
[2025-05-09] MEDS: Folic Acid 1 MG TAB PO SCH (08:23)
[2025-05-09] MEDS: Thiamine 100 MG TAB PO SCH (08:23)
[2025-05-09] MEDS: Furosemide 40 MG TAB PO SCH (08:23)
[2025-05-09] MEDS: Vancomycin HCl 750 MG in Sodium Chloride 0.9% 250 ML 250 ML IVPB SCH (14:53)
[2025-05-09] MEDS: PNEUMOC 20-VAL CONJ-DIP CRM/PF 0.5 ML SYRINGE IM ONE (17:36)
[2025-05-10 05:37] LABS: #Basophils 0.06 10x3/uL (0.0-0.2); #Eosinophils 0.60 10x3/uL (0.0-0.7); #Monocytes 0.42 10x3/uL (0.11-0.59); #Neutrophils 2.17 10x3/uL (1.40-6.50); %Basophils 1.4 % (0.0-1.0); %Eosinophils 14.0 % (0.0-10.0); %Lymphocytes 23.6 % (21.0-51.0); %Monocytes 9.8 % (0.0-10.0); %Neutrophils 50.7 % (42.0-75.0); Hematocrit 32.0 % (42.0-52.0); Hemoglobin 10.8 g/dL (14.0-18.0); Mean Corpuscular Hemoglobin 33.1 pg (27.0-31.0); Mean Corpuscular Volume 98.2 fL (78.0-98.0); Platelet Count 152 10x3/uL (130-400); Red Blood Cell (RBC) Count 3.26 mill/uL (4.70-6.10); White Blood Cell (WBC) Count 4.28 10x3/uL (4.8-10.8)
[2025-05-10 06:15] LABS: Anion Gap 9 mmol/L (10-20); BUN (Urea Nitrogen) 9 mg/dL (8.4-25.7); Calc. Creatinine Clearance 201 mL/min (70-130); Calcium 7.1 mg/dL (7.8-10.44); Carbon Dioxide 21 mmol/L (22-29); Chloride 107 mmol/L (98-107); Glucose 96 mg/dL (70-105); Potassium 3.4 mmol/L (3.5-5.1); Sodium 134 mmol/L (136-145)
[2025-05-10 17:37] VITALS: BMI 25.8
[2025-05-11 05:44] LABS: Vancomycin, Random 2.6 ug/mL (See Comment)
[2025-05-11 06:26] LABS: Calc. Creatinine Clearance 206.0 mL/min (70-130)
[2025-05-11] MEDS ORDERED: Iopamidol 370 76% 100 ML VIAL ONE (13:20)
[2025-05-13 08:05] VITALS: BP 148/83; TEMP 98.3
== END 2025-05-13 16:06 | disposition home or self-care (01) | DRG 603 ==
LOC: ERS 11:10 → T4-B 16:31 → OBSVTOIN 05-09 13:45
PROVIDERS: ADMIT Family Medicine; ATTEND Internal Medicine
DX: L03.116 Cellulitis of left lower limb (principal); I50.32 Chronic diastolic (congestive) heart failure; I25.10 Atherosclerotic heart disease of native coronary artery without angina pectoris; I11.0 Hypertensive heart disease with heart failure; K74.60 Unspecified cirrhosis of liver; D64.9 Anemia, unspecified; E83.42 Hypomagnesemia; E87.6 Hypokalemia; Z95.1 Presence of aortocoronary bypass graft; Z98.890 Other specified postprocedural states; Z79.2 Long term (current) use of antibiotics; Z79.899 Other long term (current) drug therapy
CPT/HCPCS: 36415; 76882; 80048; 80202; 81001; 82565; 83605; 83735; 83880; 85025; 86141; 87040; 87070; 87077; 87081; 87186; 87205; 93005; 93970; 96365; 96366; 96367; 96372; 96375; 96376; 97139; G0378; J0692; J0696; J1650; J2270; J2405; J3373; J3375; J3475; J7050; Q9967